=== PATIENT | male | born 2000 | race Caucasian/White ===

== ENCOUNTER 2020-11-12 12:28 | Emergency (ER) | payer BC ==
[~2020-11-12] VITALS: Ht 177.8 cm; Wt 85.3 kg
[2020-11-12 12:57] VITALS: BP_SYST 138
[2020-11-12 15:56] VITALS: BP_SYST 138
== END 2020-11-12 15:56 | disposition home or self-care (01) ==
LOC: SED 12:28
DX: J06.9 Acute upper respiratory infection, unspecified (principal); F41.9 Anxiety disorder, unspecified; Z20.822 Contact with and (suspected) exposure to COVID-19
CPT/HCPCS: 36415; 71045; 99284